=== PATIENT | female | born 1975 | race Caucasian/White ===

== ENCOUNTER 2023-01-14 19:44 | Emergency (ER) | payer BC, SELFPAY ==
[2023-01-14 19:48] VITALS: BP 133/79; PULSE 79; RESP 18; TEMP 36.6; O2SAT 96; BMI 29.1
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
== END 2023-01-14 22:12 | disposition home or self-care (01) ==
PROVIDERS: Emergency Provider Internal Medicine
DX: S62.612A Displaced fracture of proximal phalanx of right middle finger, initial encounter for closed fracture (principal); S62.614A Displaced fracture of proximal phalanx of right ring finger, initial encounter for closed fracture; V29.99XA Rider (driver) (passenger) of other motorcycle injured in unspecified traffic accident, initial encounter; Z87.891 Personal history of nicotine dependence
CPT/HCPCS: 29125; 73130; 99284

== ENCOUNTER 2024-10-12 22:05 | Outpatient (REF) | payer BC, SELFPAY ==
--- OUTSIDE RECORDS SUMMARY | 2024-09-28 07:55 | XMS_ITS | Encounter Summary ---
Author Organization [facility] tem Address [id number] [address] [place] [address] Care Team Providers Care Registered Clinical Dietitian Name Role Phone Lisa Tobias MD Primary Care Provider [phone] Reason for Visit * Auth/Cert Specialty Diagnoses / Procedures Referred By Contac t Referred To Contact Diagnoses Screen for colon cancer screening Procedures MD COLON CA SCRN NOT HI RSK IND MD COLONOSCOPY FLX DX W/COLLJ SPEC WHEN PFRMD COLONOSCOPY DIAGNOSTIC / SCREENING COLONOSCOPY DIAGNOSTIC / SCREENING Brandon Jeffrey, [address] [place] [address] Phone: tel: fax: Referral ID Status Reason Start Date Expiration Date Visits Re quested Visits Authorized [id number] 1 1 Encounter Details Date Type Department Care Team (Late st Contact Info) Description 09/28/2024 7:55 AM EDT Anesthesia Event [facility] - Surgery [address] [place] [address] Sandip Tomas MD [address] [place] [id number] Anesthesia Record Procedure Summary Procedure Name Responsible Anesthesiologist Anesthesia Start Time Anesthesia Stop Time COLONOSCOPY DIAGNOSTIC / SCREENING Sandip Tomas MD 09/28/24 0755 09/28/24 0811 Events Date Time Event Comment 09/28/2024 0718 0755 An Start 0755 An Start Data 0759 An Induction The patient was reevaluated immediately before moderate or deep sedation use and before anesthesia induction. 0759 Patient Ready for Surgeon 0759 Position 0811 an stop data 0811 Transport/Transfer From the OR 0811 An Stop 08 Handoff to RN Transported to :Phase II, Spontaneous Ventilation, O2 per Nasal Cannula, 0 LPM Pt. Tolerated procedure well, vital signs stable and document on nursing record Care transferred to receiving RN Meds Name Total propofol (DIPRIVAN) injection 300 mg lidocaine (XYLOCAINE) injection 2% 100 m g lactated ringers infusion 0 mL * Agents No agents on file. * Blood No blood administrations on file. Lines, Drains, and Airways Type Details Placement Removal Peripheral IV Placement Date: 09/01 ; Placement Time: 625; Catheter Size: 22 G; Orientation: Posterior, Right; Location: Hand; Site Prep: Chlorhexadine and isopropyl alcohol; Inserted by: LISA RN; Insertion Attempts: 1; Patient Tolerance: Tolerated well; Removal Date: 09/28/24; Removal Time: 82409/28/24625 by Courtney Connell RN 09/28/24824 by Courtney Connell RN documented in this encounter Social History Tobacco Use Types Packs/Day Years Used Date Smoking Tobacco: Former Cigarettes 1 12.4 0 05/02/1999 - 09/11/2011 Smokeless Tobacco: Never Alcohol Use Standard Drinks/Week Comments Not Currently 2 (1 standard drink = 0.6 oz pur e alcohol) Childcare Answer Date Recorded Childcare Unknown 09/10/2018 Employment Answer Date Recorded Employment Unknown 09/10/2018 Comments No Sex and Gender Information Value Date Recorded Sex Assigned at Not on file Legal Sex Female 11:51 AM EDT Gender Identity Not on file Sexual Orientation Not on file documented as of this encounter OR Notes * Anesthesia Postprocedure Evaluation - Sandip Tomas MD - 09/30/2024 2:11 PM EDT ANESTHESIA POST-EVALUATION [facility] [place] Procedure Summary Date: 09/28/24 Room / Location: [facility] OR [address] [place] [address] SURGERY Anesthesia Start: 754 Anesthesia Stop: 810 Procedure: COLONOSCOPY DIAGNOSTIC / SCREENING Diagnosis: Screen for colon cancer (screening) Surgeons: Brandon Jeffrey DO Responsible Provider: Sandip Tomas MD Anesthesia Type: MAC ASA Status: 3 Vitals: 09/28/24 0831 BP: 105/69 Pulse: 68 Resp: 18 Temp: SpO2: 98% Patient Evaluated: PACU Patient Participation: Complete - patient participated Patient Level of Consciousness: Awake Pain Score: 1 Pain Management: Adequate Airway Patency: Patent Anesthetic Complications: No Cardiovascular Status: Hemodynamically Stable Respiratory Status: Stable/Baseline, Nonlabored Ventilation and Room Air Post-op Hydration: Euvolemic Final Anesthesia Type: MAC Does patient meet criteria to D/C from PACU?: Yes Is patient sedated pharmacologically at PACU D/C?: No No notable events documented. * Anesthesia Preprocedure Evaluation - Sandip Tomas MD - 09/28/2024 7:17 AM EDT Images from the original note were not included. [facility]): COLONOSCOPY DIAGNOSTIC / SCREENING ANESTHESIA PHYSICAL EXAM Patient summary reviewed and nursing notes reviewed. Airway Mallampati: II TM distance: >3 FB Neck ROM: full Patient is not intubated Patient does not have tracheostomy Dental : exam normal Pulmonary : exam normal Cardiovascular : exam normal Abdominal : exam normal Other Findings ANESTHESIA PLAN ASA 3 Anesthesia Type: MAC Induction: Intravenous Anesthetic risks, plan and alternatives discussed with Patient and Spouse. Use of blood products discussed with Patient and Spouse who consented to blood products. Plan discussed with Attending and BUTTON PUNCHER. Airway Management: Nasal Cannula and Awake/Sedated Post op Pain Management: IV Analgesics Transfer to Phase II PONV: Intermediate Risk Total Score: 2 Female patient Non-smoker Criteria that do not apply: History of PONV and/or Motion Sickness Intended opioid administration RCRI: Low Risk: Score of 0 = 3.9% (2.8-5.4%) Risk of major cardiac event Score of 1 = 6.0% (4.9-7.4%) Risk of major cardiac event Total Score: 0 Criteria that do not apply: Cerebrovascular Disease Ischemic Heart Disease Congestive Heart Failure Elevated Risk Surgery Pre-operative Treatment with Insulin Pre-operative Creatinine >2 mg/dL / 176.8 mol/L There is no problem list on file for this patient. documented in this encounter Plan of Treatment Not on file documented as of this encounter Visit Diagnoses Not on filedocumented in this encounter Administered Medications Inactive Administered Medications - up to 3 most recent administrations Medication Order MAR Action Action Date Dose Rate Site lactated ringers infusion 50 mL/hr, intravenous, Continuous, Starting on Sat09/28/24 at 0630, Pre-op, If fluid restriction is not indicated, infuse at a rate up to 5 mL/kg/hr not to exceed the total replacement volume (2 ml/kg/hr) from the time NPO status was initiated. Continued by Anesthesia 09/28/2024 7:55 AM EDT 50 mL/hr New Bag 09/28/2024 6:30 AM EDT 50 mL/hr 50 mL/hr lidocaine (XYLOCAINE) 20 mg/mL (2 %) injection intravenous, As needed, Starting on Sat09/28/24 at 0803, Anesthesia Intra-op Given 09/28/2024 8:03 AM EDT 100 mg propofoL (DIPRIVAN) infusion intravenous, As needed, Starting on Sat09/28/24 at 0803, Anesthesia Intra-op Given 09/28/2024 8:07 AM EDT 100 mg Given 09/28/2024 8:03 AM EDT 100 mg Given 09/28/2024 8:01 AM EDT 100 mg documented in this encounter Care Teams Registered Clinical Dietitian Relationship Specialty Start Date End Date Lisa Tobias MD [address] [place] [address] PCP - General Family Medicine 01/28/23 documented as of this encounter
--- OUTSIDE RECORDS SUMMARY | 2024-09-28 08:00 | XMS_ITS | Encounter Summary ---
Author Organization [facility] tem Address [id number] [address] [place] [address] Care Team Providers Care Wood Pile Driver Operator Name Role Phone Lisa Tobias MD Primary Care Provider [phone] Reason for Visit * Auth/Cert Specialty Diagnoses / Procedures Referred By Contac t Referred To Contact Diagnoses Screen for colon cancer screening Procedures SD COLON CA SCRN NOT HI RSK IND SD COLONOSCOPY FLX DX W/COLLJ SPEC WHEN PFRMD COLONOSCOPY DIAGNOSTIC / SCREENING COLONOSCOPY DIAGNOSTIC / SCREENING Brandon Jeffrey DO [address] [place] [address] Phone: tel: fax: Referral ID Status Reason Start Date Expiration Date Visits Re quested Visits Authorized [id number] 1 1 Encounter Details Date Type Department Care Team (Late st Contact Info) Description 09/28/2024 8:00 AM EDT - 09/28/2024 8:[address] [facility] - Surgery [address] [place] [address] Brandon Jeffrey DO [address] [place] [address] COLONOSCOPY DIAGNOSTIC / SCREENING [G0121 +1 more] Surgery Details Date/Time Status Location OR Service Patient Class Case Cl ass Case Type Trauma Case? 09/28/2024 8:00 AM Posted [facility] [address] [place] [address] Outpatient Surgery Elective Panel 1 Procedure LRB Anes Op Region Wound Class Comments COLONOSCOPY DIAGNOSTIC / SCREENING N/A Monitored Anesthesia Care Surgeon Surgeon Role Service Panel Brandon Jeffrey, Primary General 1 documented in this encounter Social History Tobacco [...] on file documented as of this encounter Last Filed Vital Signs Vital Sign Reading Time Taken Comments Blood Pressure 106/69 09/28/2024 8:13 AM EDT Pulse 64 09/28/2024 8:13 AM EDT Temperature 36.8 C (98.3 F) 09/28/2024 6:30 AM EDT Respiratory Rate 24 09/28/2024 8:13 AM EDT Oxygen Saturation 97% 09/28/2024 8:13 AM EDT Inhaled Oxygen Concentration - - Weight 86.2 kg (190 lb) 09/28/2024 6:30 AM EDT Height 165.1 cm (5' 5 ) 09/28/2024 6:30 AM EDT Body Mass Index 31.62 09/28/2024 6:30 AM EDT documented in this encounter Discharge Instructions * Discharge Instructions* Courtney Connell RN - 09/28/2024 8:14 AM EDT You may feel dizzy, sleepy, and lightheaded due to medications you received. For the next 24 hours: Activity tolerated within Physical Limits Rest at home with moderate activity as tolerated Do not drink alcohol Do not drive Do not operate complex/hazardous machinery today Do not make important decisions or sign important papers Notify physician of: Temperature over 100.4 degrees farenheit Redness, Warmth, Hardness around IV site Allergic Reaction (rash, hives, itching, trouble breathing or swallowing) Questions, Problems, Concerns Preop phone number [phone] ext [phone] POST LOWER ENDOSCOPY INSTRUCTIONS Normal expectations after this procedure include: Abnormal discomfort due to the air put in during the examination, and this will not last long. You may notice a small amount of blood in your first bowel movements if a biopsy or polyp was taken. It is rare that you will experience any serious side effects from this procedure. Over the next 24 hours observe for any of the following and notify your physician if they develop. Increase in rectal bleeding or black tarry stools Temperature over 100.4 ?? F. Abdominal discomfort that continues or increases Persistent vomiting If Soreness develops at your intravenous site, Apply warm, moist compresses for 20 minutes, 4 timesa day. If there is no improvement after 24 hours, please call your physician. GENERAL ACTIVITY You have been given sedative medications. Normal responses to these medications include drowsiness,altered perception, or forgetfulness. For the Next 24 hours: Do not drive, work, or operate machinery Do not consume alcohol, tranquilizers, or sleeping medications unless advised by your physician. Do not make important personal or business decisions DIET Advance diet as tolerated Any questions regarding your care, please contact [facility] [phone] documented in this encounter Medications at Time of Discharge ibuprofen (ADVIL,MOTRIN) 200 mg tablet Take 3 tablets (600 mg total) by mouth every 6 (six) hours as needed. documented as of this encounter H&P Notes * Brandon Jeffrey DO - 09/28/2024 6:20 AM EDT HISTORY AND PHYSICAL INTERVAL NOTE: Camilla Costa 1975 [id number] H&P reviewed. The patient was examined and there are no changes to the H&P. Brandon Jeffrey DO Source Note - Suri Bradley APRN-DIRECT SERVICE WORKER - 09/21/2024 12:00 PM EDT Chief Complaint: Screening colonoscopy History of Present Illness Camilla Costa is a 48 y.o. female who presents to the office for colon cancer screening. This will be her first colonoscopy. She reports lower abdominal pain for years. The pain is unrelated to bowel movements and is worst when she is menstruating. She is following with OBGYN. She denies any constipation, diarrhea or rectal bleeding. There is no family history of colon cancer. Review of Systems Constitutional: Negative for fever and unexpected weight change. HENT: Negative for trouble swallowing. Respiratory: Negative for shortness of breath. Cardiovascular: Negative for chest pain. Gastrointestinal: Negative for vomiting, diarrhea, constipation and blood in stool. Genitourinary: Negative for dysuria and difficulty urinating. Musculoskeletal: Negative for gait problem. Skin: Negative for rash and wound. Neurological: Negative for dizziness, weakness and light-headedness. Hematological: Does not bruise/bleed easily. Psychiatric/Behavioral: Negative for confusion. Past Medical History: Diagnosis Date Allergic Seasonal Anemia 09/10 Diagnosed when in 2011 Past Surgical History: Procedure Laterality Date FINGER SURGERY KNEE SURGERY No Known Allergies Current Outpatient Medications: ibuprofen (ADVIL,MOTRIN) 200 mg tablet, Take 3 tablets (600 mg total) by mouth every 6 (six) hours as needed., Disp: , Rfl: sod sulf-pot chloride-mag sulf 1.479-0.188- 0.225 gram tablet, Please see instructional sheet givenby physicians office., Disp: 24 tablet, Rfl: 0 Social History Socioeconomic History Marital status: Spouse name: Not on file Number of children: Not on file Years of education: Not on file Highest education level: Not on file Occupational History Not on file Tobacco Use Smoking status: Former Current packs/day: 0.00 Average packs/day: 1 pack/day for 12.4 years (12.4 ttl pk-yrs) Types: Cigarettes Start date: 05/02/1999 Quit date: 09/11/2011 Years since quittin.0 Smokeless tobacco: Never Vaping Use Vaping status: Never Used Substance and Sexual Activity Alcohol use: Not Currently Alcohol/week: 2.0 standard drinks of alcohol Types: 2 Cans of beer per week Drug use: Never Sexual activity: Yes Partners: Male control/protection: Post-menopausal Other Topics Concern Not on file Social History Narrative Not on file Social Drivers of Health Financial Resource Strain: Low Risk (06/04/2024) Received from [facility] Overall Financial Resource Strain (CARDIA) Difficulty of Paying Living Expenses: Not hard at all Food Insecurity: No Food Insecurity (06/04/2024) Received from [facility] Hunger Vital Sign Worried About Running Out of Food in the Last Year: Never true Ran Out of Food in the Last Year: Never true Transportation Needs: No Transportation Needs (06/04/2024) Received from [facility] PRAPARE - Transportation Lack of Transportation (Medical): No Lack of Transportation (Non-Medical): No Physical Activity: Sufficiently Active (06/04/2024) Received from [facility] Exercise Vital Sign Days of Exercise per Week: 4 days Minutes of Exercise per Session: 50 min Stress: Stress Concern Present (06/04/2024) Received from [facility] [place] of Occupational Health - Occupational Stress Questionnaire Feeling of Stress : To some extent Social Connections: Socially Isolated (06/04/2024) Received from [facility] Social Connection and Isolation Panel [NHANES] Frequency of Communication with Friends and Family: Twice a week Frequency of Social Gatherings with Friends and Family: Once a week Attends Confucianist Services: Never Active Member of Clubs or Organizations: No Attends Club or Organization Meetings: Patient declined Marital Status: Interpersonal Safety: Not on file Housing Instability: Low Risk (06/04/2024) Received from [facility] Housing Stability Vital Sign Unable to Pay for Housing in the Last Year: No Number of Times Moved in the Last Year: 0 Homeless in the Last Year: No Family History Problem Relation Age of Onset Diabetes Mother Objective Physical Exam Constitutional: General: She is not in acute distress. Appearance: Normal appearance. She is not ill-appearing. HENT: Head: Normocephalic and atraumatic. Mouth/Throat: Mouth: Mucous membranes are moist. Eyes: Pupils: Pupils are equal, round, and reactive to light. Cardiovascular: Rate and Rhythm: Normal rate. Pulmonary: Effort: Pulmonary effort is normal. No respiratory distress. Abdominal: General: There is no distension. Palpations: Abdomen is soft. Tenderness: There is no abdominal tenderness. Musculoskeletal: General: Normal range of motion. Skin: General: Skin is warm and dry. Neurological: Mental Status: She is alert and oriented to person, place, and time. Mental status is at baseline. Vital Signs: Blood pressure 152/75, height 165.1 cm (5' 5 ), weight 90.4 kg (199 lb 3.2 oz). Respiratory Source: No data recorded Admission Weight: Weight: 90.4 kg (199 lb 3.2 oz) Labs No results found for: WBC , HGB , HCT , MCV , PLT No results found for: GLU , CALCIUM , NA , K , CO2 , CL , BUN , CREATININE No results found for: AMYLASE No results found for: LIPASE No results found for: ALT , AST , GGT , ALKPHOS , LABBILI No results found for: INR , PROTIME Assessment Camilla Costa is a 48 y.o.female who presents for screening colonoscopy. Plan Colonoscopy with possible biopsy and/or polypectomy. Risks, benefits, and alternatives discussed with patient. Patient verbalizes understanding and wishes to proceed. Evaluation included: Preparing to see the patient (e.g., review of tests) Obtaining and/or reviewing separately obtained history Performing a medically appropriate examination and/or evaluation Counseling and educating the patient/family/caregiver Referring and communicating with other health critical care transport nurse Encounter for screening colonoscopy [Z12.11] ELYSSA KING [facility] General Surgery [place] This note was created with the assistance of a speech recognition program. While intending to generate a timely document that accurately reflects the content of the visit, no guarantee can be provided that every grammatical or spelling mistake has been or will be identified or corrected. Thank you for your understanding. ELYSSA King 09/21/24 1237 ELYSSA King 09/28/24 0621 documented in this encounter Plan of Treatment Not on file documented as of this encounter Procedures Procedure Name Priority Date/Time Associated Diagnosis Comments SD COLONOSCOPY FLX DX W/COLLJ SPEC WHEN PFRMD 09/28/2024 7:58 AM EDT Screen for colon cancer SD COLON CA SCRN NOT HI RSK IND 09/28/2024 7:58 AM EDT Screen for colon cancer COLONOSCOPY 09/28/2024 7:51 AM EDT PROVATION COLONOSCOPY Routine 09/28/2024 6:18 AM EDT documented in this encounter Results * Colonoscopy (09/28/2024 7:51 AM EDT) 09/28/2024 7:51 AM EDT [facility] CARDIOVASCULAR - 09/28/2024 8:[address] [facility] Patient Name: Camilla Costa Procedure Date No Time: 09/28/2024 CSN : [id number] Date of : 1975 Admit Type: Outpatient Age: 48 Room: [place] [address] Gender: Female Note Status: Finalized Attending MD: Brandon Jeffrey DO, Procedure: Colonoscopy Indications: Screening for colorectal malignant neoplasm Providers: Brandon Jeffrey DO Referring MD: Brandon Jeffrey DO Medicines: Propofol per Anesthesia Complications: No immediate complications. Procedure: After I obtained informed consent, the scope was passed under direct vision. Throughout the procedure, the patient's blood pressure, pulse, and oxygen saturations were monitored continuously. [facility] [id number] #[id number] ADULT COLONOSCOPE was introduced through the anus and advanced to the cecum, identified by appendiceal orifice and ileocecal valve. The colonoscopy was performed without difficulty. The patient tolerated the procedure well. The quality of the bowel preparation was excellent. Findings: The perianal and digital rectal examinations were normal. The colon (entire examined portion) appeared normal. The exam was otherwise without abnormality on direct and retroflexion views. Estimated Blood Loss: Estimated blood loss: none. Impression: - The entire examined colon is normal. - The examination was otherwise normal on direct and retroflexion views. - No specimens collected. Recommendation: - Written discharge instructions were provided to the patient. - Repeat colonoscopy in 10 years for screening purposes. - Return to my office PRN. Procedure Code(s): --- Professional --- G0121, Colorectal cancer screening; colonoscopy on individual not meeting criteria for high risk Diagnosis Code(s): --- Professional --- Z12.11, Encounter for screening for malignant neoplasm of colon CPT copyright 2022 [employer] [place] [employer]. All rights reserved. The codes documented in this report are preliminary and upon fur pointer review may be revised to meet current compliance requirements. DO Brandon Menjivar DO 09/28/2024 8:13:06 AM Number of Addenda: 0 Note Initiated On: 09/28/2024 7:51 AM Procedure Note Brandon Jeffrey DO - 09/28/2024 [facility] Patient Name: Camilla Costa Procedure Date No Time: 09/28/2024 CSN : [id number] Date of : 1975 Admit Type: Outpatient Age: 48 Room: [place] [address] Gender: Female Note Status: Finalized Attending MD: Brandon Jeffrey DO, Procedure: Colonoscopy Indications: Screening for colorectal malignant neoplasm Providers: Branodn Jeffrey DO Referring MD: Brandon Jeffrey DO Medicines: Propofol per Anesthesia Complications: No immediate complications. Procedure: After I obtained informed consent, the scope was passed under direct vision. Throughout theprocedure, the patient's blood pressure, pulse, and oxygen saturations were monitored continuously. [facility] [id number] #[id number] ADULT COLONOSCOPE was introduced through the anus and advanced to the cecum,identified by appendiceal orifice and ileocecal valve. The colonoscopy was performed without difficulty. The patient tolerated the procedure well. The qualityof the bowel preparation was excellent. Findings: The perianal and digital rectal examinations were normal. The colon (entire examined portion) appeared normal. The exam was otherwise without abnormality on direct and retroflexion views. Estimated Blood Loss: Estimated blood loss: none. Impression: - The entire examined colon is normal. - The examination was otherwise normal on directand retroflexion views. - No specimens collected. Recommendation: - Written discharge instructions were provided tothe patient. - Repeat colonoscopy in 10 years for screening purposes. - Return to my office PRN. Procedure Code(s): --- Professional --- G0121, Colorectal cancer screening; colonoscopy on individual not meeting criteria for high risk Diagnosis Code(s): --- Professional --- Z12.11, Encounter for screening for malignant neoplasm of colon CPT copyright 2022 [employer] [place] [employer]. All rights reserved. The codes documented in this report are preliminary and upon fur pointer reviewmay be revised to meet current compliance requirements. DO Brandon Menjivar DO 09/28/2024 8:13:06 AM Number of Addenda: 0 Note Initiated On: 09/28/2024 7:51 AM us Brandon E Grillis DO GI PROCEDURE ORDERABLES Fin al Result PM CARDIOVASCULAR * Colonoscopy Report (09/28/2024 6:18 AM EDT) Narrative SYSTEMGENERATED, DOCUMENTATION - 09/28/2024 6:18 AM EDT This order has been auto-finalized for image and report archival in PACs. *For full report details, please reach out to your physician. This image is visible to you in MyChart.* us Brandon Farahradha DO IMG OR IMG ORDERABLES Final Result documented in this encounter Visit Diagnoses Diagnosis Screening for cancer- Primary Screening for unspecified malignant neoplasm Screen for colon cancer Special screening for malignant neoplasms, colon documented in this encounter Administered Medications Inactive Administered [...] 6:30 AM EDT 50 mL/hr 50 mL/hr documented in this encounter Active and Recently Administered Medications Times are shown in EDT. Continuous Medication Order 09/26/2024 09/27/2024 09/28/2024 lactated ringers infusion (CANCELED) 50 mL/hr, intravenous, Continuous, Starting on Sat09/28/24 at 0630, Pre-op, If fluid restriction is not indicated, infuse at a rate up to 5 mL/kg/hr not to exceed the total replacement volume (2 ml/kg/hr) from the time NPO status was initiated. 0630 (New Bag - Prov ider: Courtney Connell RN)0755 (Continued by Anesthesia - Provider: Misha Verdugo APRN-PIGMENT AND LACQUER MIXER)0833 (Due: Order Ending - Provider: Automatic Transfer Provider - Comment: [Order ends at this time. Document the following action when infusion is complete: Stop Bag]) documented in this encounter Care Teams Wood Pile Driver Operator Relationship Specialty Start Date End Date Lisa Tobias MD [address] [place] [address] PCP - General Family Medicine 01/28/23 documented as of this encounter
--- OUTSIDE RECORDS SUMMARY | 2024-10-12 14:20 | XMS_ITS | Encounter Summary ---
Author Organization [facility] Address [address] [place] [address] Care Team Providers Care Agricultural Equipment Test Engineer Name Role Phone Lisa Tobias MD Primary Care Provider [phone] Lola Craig ASSISTANT CURATOR Unavailable [phone] Reason for Visit * Reason Comments Pre-op Visit Gynecologic Exam Encounter Details Date Type Department Care Team (Late st Contact Info) Description 10/12/2024 2:20 PM EDT Office Visit [facility] [address] [place] [address] Jonathon Lang DO [address] [place] [place], [id number] Pre-op examination; Pelvic pain; Menorrhagia with irregular cycle; Abnormal uterine bleeding (AUB); Endometrial polyp; Well woman exam with routine gynecological exam; Breast cancer screening by mammogram Social History Tobacco Use Types Packs/Day Years Used Date Smoking Tobacco: Former Cigarettes Smokeless Tobacco: Never Alcohol Use Standard Drinks/Week Comments Yes 0 (1 standard drink = 0.6 oz pur e alcohol) B1300 Health Literacy Answer Date Recor ded How often do you need to hav e someone help you when you read instructions, pamphlets, or other written material from your doctor or pharmacy? Never 06/04/2024 Social Connection and Isolation Panel [NHANES] A nswer Date Recorded In a typical week, how many times do you talk on the phone with family, friends, or neighbors? Twice a week 06/04/2024 How often do you get togethe r with friends or relatives? Once a week 06/04/2024 How often do you attend sikhism or restorationist serv ices? Never 06/04/2024 Do you belong to any clubs o r organizations such as sikhism groups, unions, fraternal or athletic groups, or school groups? No 06/04/2024 How often do you attend meet ings of the clubs or organizations you belong to? Patient declined 06/04/2024 Are you , , di vorced, , never , or living with a partner? 06/04/2024 AUDIT-C Answer Date Recorded Q1: How often do you have a drink containing alc ohol? Monthly or less 06/04/2024 Q2: How many drinks containi ng alcohol do you have on a typical day when you are drinking? 1 or 2 06/04/2024 Q3: How often do you have si x or more drinks on one occasion? Less than monthly 06/04/2024 Overall Financial Resource Strain (CARDIA) Answe r Date Recorded How hard is it for you to pa y for the very basics like food, housing, medical care, and heating? Not hard at all 06/04/2024 [facility] [place] of Occupat ional Health - Occupational Stress Questionnaire Answer Date Recorded Do you feel stress - tense, restless, nervous, or anxious, or unable to sleep at night because your mind is troubled all the time - these days? To some extent 06/04/2024 Exercise Vital Sign Answer Date Recorde d On average, how many days pe r week do you engage in moderate to strenuous exercise (like a brisk walk)? 4 days 06/04/2024 On average, how many minutes do you engage in exercise at this level? 50 min 06/04/2024 Hunger Vital Sign Answer Date Recorded Within the past 12 months, y ou worried that your food would run out before you got the money to buy more. Never true 06/05/19 25 Within the past 12 months, t he food you bought just didn't last and you didn't have money to get more. Never true 06/04/2024 PRAPARE - Transportation Answer Date Re corded In the past 12 months, has l ack of transportation kept you from medical appointments or from getting medications? No 08/2024 In the past 12 months, has l ack of transportation kept you from meetings, work, or from getting things needed for daily living? No 06/04/2024 Housing Stability Vital Sign Answer Sebastian e Recorded In the last 12 months, was t here a time when you were not able to pay the mortgage or rent on time? No 06/04/2024 In the past 12 months, how m any times have you moved where you were living? 0 06/04/2024 At any time in the past 12 m [facility], were you homeless or living in a nursing home (including now)? No 06/04/2024 Comments No Sex and Gender Information Value Date Recorded Sex Assigned at Not on file Legal Sex Female 7:01 PM EDT Gender Identity Not on file Sexual Orientation Not on file documented as of this encounter Last Filed Vital Signs Vital Sign Reading Time Taken Comments Blood Pressure 130/82 10/12/2024 2:39 PM EDT Pulse - - Temperature - - Respiratory Rate - - Oxygen Saturation - - Inhaled Oxygen Concentration - - Weight 88.1 kg (194 lb 1.9 oz) 10/12/2024 2:39 P M EDT Height - - Body Mass Index 32.3 10/10/2022 1:40 PM EDT documented in this encounter Plan of Treatment Upcoming Encounters Date Type Department Care Team (Late st Contact Info) Description 11/16/2024 9:30 AM EDT Office Visit [facility] [address] [place] [address] Vianney Reyes PA [address] [place], [place] [id number] 10/18/2025 10:00 AM EDT Procedure Visit [facility] [address] [facility] [place] [address] Jonathon Lang DO [address] [place] [address] Scheduled Orders Name Type Priority Associated Diagnoses Orde r Schedule Bilateral screening mammogram Imaging Routine Breast cancer screening by mammogram Expected: 10/12/2024 (Approximate), Expires: 12/13/2025 THIN PREP TIS PAP AND HR HPV DNA Pathology and Cytology Routine Well woman exam with routine gynecological exam Ordered: 10/12/2024 documented as of this encounter Visit Diagnoses Diagnosis Pre-op examination Pelvic pain Menorrhagia with irregular cycle Abnormal uterine bleeding (AUB) Endometrial polyp Polyp of corpus uteri Well woman exam with routine gynecological exam Routine gynecological examination Breast cancer screening by mammogram documented in this encounter Care Teams Agricultural Equipment Test Engineer Relationship Specialty Start Date End Date Lisa Tobias MD [address] [place] [address] PCP - General Family Medicine 09/18/22 Lola Craig NP [address] [place] [address] PCP - Jessi Sampson 07/30/24 documented as of this encounter
--- OUTSIDE RECORDS SUMMARY | 2024-10-12 22:11 | XMS_ITS | Encounter Summary ---
Author Organization [facility] Address [address] [place] [address] Care Team Providers Care Staking Press Operator Name Role Phone Lisa Tobias MD Primary Care Provider [phone] Lola Craig TANK BUILDER AND ERECTOR Unavailable [phone] Encounter Details Date Type Department Care Team (Latest Contact Info) Description 10/11/2024 Travel Social History Tobacco Use Types Packs/Day Years [...] week 06/04/2024 How often do you attend latter-day or taoism serv ices? Never 06/04/2024 Do you belong to any clubs o r organizations such as latter-day groups, unions, fraternal or athletic groups, or [...] and heating? Not hard at all 06/04/2024 [facility] Occup[facility] ional Health - Occupational Stress [...] time in the past 12 m [facility], were you homeless or living in a fdc (including now)? No 06/04/2024 Comments No Sex and Gender Information Value Date Recorded Sex Assigned at Not on file Legal Sex Female 7:01 PM EDT Gender Identity Not on file Sexual Orientation Not on file documented as of this encounter Plan of Treatment Upcoming Encounters Date Type Department Care Team (Late st Contact Info) Description 11/16/2024 9:30 AM EDT Office Visit [facility] OB [address] [place] [address] Vianney Reyes PA [address] [place], [place] [address] 10/18/2025 10:00 AM EDT Procedure Visit [facility] OB [address] [place] [address] Jonathon Lang DO [address] [facility] [address] [place], [facility] documented as of this encounter Visit Diagnoses Not on filedocumented in this encounter Care Teams Staking Press Operator Relationship Specialty Start Date End Date Lisa Tobias MD [address] [place], [place] [id number] PCP - General Family Medicine 09/18/22 Lola Craig NP [address] [place], [place] [id number] PCP - [place] [employer] 07/30/24 documented as of this encounter
--- OUTSIDE RECORDS SUMMARY | 2024-10-12 22:11 | XMS_ITS | Clinical Summary ---
Author Organization [facility] Address [address] [place] [address] Care Team Providers Care Medical Device Sales Representative Name Role Phone Lisa Tobias MD Primary Care Provider [phone] Lola Craig MEDICAL CODING INSTRUCTOR Unavailable [phone] Allergies No known active allergies Medications ibuprofen 200 MG tablet Take 600 mg by mouth every 6 (six) hours if needed. Active Active Problems No known active problems Encounters Date Type Department Care Team Description 10/12/2024 2:20 PM EDT Office Visit [facility] [place] [address] [place] [address] Jonathon Lang DO Pre-op examination; Pelvic pain; Menorrhagia with irregular cycle; Abnormal uterine bleeding (AUB); Endometrial polyp; Well woman exam with routine gynecological exam; Breast cancer screening by mammogram 10/11/2024 Travel 09/28/2024 Abstract [facility] [place] [address] [place] [address] Jonathon Lang DO 08/31/2024 1:10 PM EDT Consult [facility] [place] [address] [place] [address] Jonathon Lang DO Pelvic pain in female (Primary Dx); Menorrhagia with regular cycle 08/31/2024 Bamboo flowsheet [facility] [place] [address] [place] [address] Jonathon Lang, 08/26/2024 Travel 07/15/2024 Results Follow-Up [facility] [address] [facility] [place] [id number] Isis Blakely CNM 07/15/2024 Orders Only [facility] [address] [facility] [place] [address] Isis Blakely CNM Pelvic pain in female (Primary Dx) from Last 3 Months Family History Medical History Relation Name Comments Hypertension Father Hypertension Mother Relation Name Status Comments Father Alive Mother Alive Social History Tobacco Use Types Packs/Day Years Used Date Smoking Tobacco: Former Cigarettes Smokeless Tobacco: Never Tobacco Cessation:Counseling Given: Not Answered Alcohol Use Standard Drinks/Week Comments Yes 0 [...] week 06/04/2024 How often do you attend gnosticism or mu-ism serv ices? Never 06/04/2024 Do you belong to any clubs o r organizations such as gnosticism groups, unions, fraternal or athletic groups, or [...] and heating? Not hard at all 06/04/2024 [facility] Occupat ional Health - Occupational Stress [...] any time in the past 12 m [facility], were you homeless or living in a detention (including now)? No 06/04/2024 Comments No Sex and Gender Information Value Date Recorded Sex Assigned at Not on file Legal Sex Female 7:01 PM EDT Gender Identity Not on file Sexual Orientation Not on file Last Filed Vital Signs Vital Sign Reading Time Taken Comments Blood Pressure 130/82 10/12/2024 2:39 PM EDT Pulse 80 06/08/2024 3:24 PM EDT Temperature - - Respiratory Rate - - Oxygen Saturation 99% 06/08/2024 3:24 PM EDT Inhaled Oxygen Concentration - - Weight 88.1 kg (194 lb 1.9 oz) 10/12/2024 2:39 P M EDT Height 165.1 cm (5' 5 ) 10/10/2022 1:40 PM EDT Body Mass Index 32.3 10/10/2022 1:40 PM EDT Plan of Treatment Upcoming Encounters Date Type Department Care Team (Late st Contact Info) Description 11/16/2024 9:30 AM EDT Office Visit [facility] OB [address] [place] [address] Vianney Reyes PA [address] [facility] [address] [place], [place] [id number] 10/18/2025 10:00 AM EDT Procedure Visit [facility] [address] [facility] [address] Jonathon Lang DO [address] [facility] [address] [place] [place], [place] [id number] Health Maintenance Due Date Last Done Comments CT Colonography 1977 FIT-DNA 1977 FIT 1977 FOBT 1975 Sigmoidoscopy 1977 Pap Smear 1998 Mammogram 2017 Influenza Vaccine (#1) 2024 Cervical Cancer Screening 09/26/2027 HPV/Cotest 09/26/2027 09/25/2022, 02/02/2021 Colonoscopy 09/28/2034 09/28/2024, 09/28/2024, 09/01 Colorectal Cancer Screening 09/28/2034 Procedures Procedure Name Priority Date/Time Associated Diagnosis Comments THINPREP PAP AND HPV MRNA E6/E7 W/RFL HPV 16,18/45 Routine 09/25/2022 3:59 PM EDT Vaginal burning from Last 3 Months or Most Recently Relevant to Health Maintenance Results * THINPREP PAP AND HPV MRNA E6/E7 W/RFL HPV 16,18/45 (09/25/2022 3:59 PM EDT) CLINICAL INFORMATION [facility] Comment:Routine exam LMP [facility] Comment:NONE GIVEN PREV. PAP [facility] Comment:NONE GIVEN PREV. BX [facility] Comment:NONE GIVEN SOURCE [facility] Comment:None given STATEMENT OF ADEQUACY [facility] Comment: Satisfactory for evaluation. Endocervical/transformation zone component present. INTERPRETATION/RESU LT [facility] Comment:Negative for intraep ithelial lesion or malignancy. GARAGE DOOR SERVICE TECHNICIAN [facility] Comment: DAA, CT(ASCP) CT Screening Location: [facility] [place] [address] REVIEW GARAGE DOOR SERVICE TECHNICIAN [facility] Comment: ARTURO SCT(ASCP) CT Screening Location: [place] [address]. (ALWAYS MESSAGE) [facility] Comment: EXPLANATORY NOTE: The Pap is a screening test for cervical cancer. It is not a diagnostic test and is subject to false negative and false positive results. It is most reliable when a satisfactory sample, regularly obtained, is submitted with relevant clinical findings and history, and when the Pap result is evaluated along with historic and current clinical information. HPV MRNA E6/E7 Not Detected Not Detected [facility] Comment: Methodology: Ground Water Contractor-Mediated Amplification This assay detects E6/E7 viral messenger RNA (mRNA) from 14 high-risk HPV types (16,18,31,33,35,39,45,51,52,56,58,59,66,68). Cervical sources are required for HPV testing. If a vaginal source from a patient who has had a total hysterectomy with removal of cervix was submitted, please contact the testing laboratory for alternative testing options. For additional information, please refer to http://education.[employer]/faq/VNR901l6 (This link if provided for information/ educational purposes only.) 09/25/2022 3:5 9 PM EDT 09/26/2022 4:00 AM EDT Narrative Resulting Agency Comment Performing Organization Information Site ID: [id number] Name: [facility] Address: [address] [place] [address], [address] [place] [id number] Director: Michael Pino MD us Isis LENNON LAB BLOOD ORDERABLES Final R esult [facility] from Last 3 Months or Most Recently Relevant to Health Maintenance Insurance BCBS Care Teams Medical Device Sales Representative Relationship Specialty Start Date End Date Lisa Tobias MD [address] [place] [address] PCP - General Family Medicine 09/18/22 Lola Craig NP [address] [place], [place] [id number] PCP - [place] [employer] 07/30/24
--- OUTSIDE RECORDS SUMMARY | 2024-10-12 22:11 | XMS_ITS | Encounter Summary ---
Author Organization [facility] Address [address] [place] [address] Care Team Providers Care President Financial Institution Name Role Phone Lisa Tobias MD Primary Care Provider [phone] Lola Craig PHARMACEUTICAL SALES REPRESENTATIVE Unavailable [phone] Encounter Details Date Type Department Care Team ([facility] Contact Info) Description 09/28/2024 Abstract [facility] OB [address] [place] [address] Jonathon Lang, DO [address] [facility] [address] [place], [facility] Social History Tobacco Use Types Packs/Day Years [...] week 06/04/2024 How often do you attend jehovah's witness or gnosticist serv ices? Never 06/04/2024 Do you belong to any clubs o r organizations such as jehovah's witness groups, unions, fraternal or athletic groups, or [...] and heating? Not hard at all 06/04/2024 [facility] Occupat ional Health - [...] any time in the past 12 m [facility], were you homeless or living in a senior care (including now)? No 06/04/2024 Comments No Sex and Gender Information Value Date Recorded Sex Assigned at Not on file Legal Sex Female 7:01 PM EDT Gender Identity Not on file Sexual Orientation Not on file documented as of this encounter Plan of Treatment Upcoming Encounters Date Type Department Care Team (Late st Contact Info) Description 11/16/2024 9:30 AM EDT Office Visit [facility] OB [address] [facility] [place] [phone] Vianney Reyes PA [address] [facility] [address] [place], [place] [id number] 10/18/2025 10:00 AM EDT Procedure Visit [facility] OB [address] [place] [address] Jonathon Lang DO [address] [facility] [address] [place], [place] [address] documented as of this encounter Visit Diagnoses Not on filedocumented in this encounter Care Teams President Financial Institution Relationship Specialty Start Date End Date Lisa Tobias MD [address] [facility] [address] [place], [place] [id number] PCP - General Family Medicine 09/18/22 Lola Craig NP [address] [facility] [address] [place], [place] [id number] PCP - [place] Commercial 07/30/24 documented as of this encounter
--- OUTSIDE RECORDS SUMMARY | 2024-10-12 22:11 | XMS_ITS | Encounter Summary ---
Author Organization [employer] tem Address [facility] [place] [place]-[id number] [address] [place] [address] Care Team Providers Care Home Care Aide Name Role Phone Lisa Tobias MD Primary Care Provider [phone] Encounter Details Date Type Department Care Team (Latest Contact Info) Description 09/28/2024 Travel Social History Tobacco Use Types Packs/Day [...] as of this encounter Plan of Treatment Not on file documented as of this encounter Visit Diagnoses Not on filedocumented in this encounter Care Teams Home Care Aide Relationship Specialty Start Date End Date Lisa Tobias MD [address] [place] [address] PCP - General Family Medicine 01/28/23 documented as of this encounter
--- OUTSIDE RECORDS SUMMARY | 2024-10-12 22:11 | XMS_ITS | Encounter Summary ---
Author Organization [facility] Address [address] [facility] [place] [address] Care Team Providers Care Conduit Worker Name Role Phone Lisa Tobias MD Primary Care Provider [phone] Lola Craig AUTOMATIC PILOT MECHANIC Unavailable [phone] Encounter Details Date Type Department Care Team (Late Contact Info) Description 01/18/2023 Abstract [facility] [address] [place] [address] Lisa Tobias MD [address] [place], [place] [id number] Social History Tobacco Use Types Packs/Day Years Used Date Smoking Tobacco: Former Cigarettes Smokeless Tobacco: Never Alcohol Use Standard Drinks/Week Comments Yes 0 (1 standard drink = 0.6 oz pur e alcohol) Comments No Sex and Gender Information Value Date Recorded Sex Assigned at Not on file Legal Sex Female 7:01 PM EDT Gender Identity Not on file Sexual Orientation Not on file documented as of this encounter Plan of Treatment Upcoming Encounters Date Type Department Care Team ([facility] Contact Info) Description 11/16/2024 9:30 AM EDT Office Visit [facility] [address] [facility] [place] [phone] Vianney Reyes PA [address] [facility] [address] [place], [place] [phone] 10/18/2025 10:00 AM EDT Procedure Visit [facility] [address] [facility] [place] [address] Jonathon Lang DO [address] [place] [address] [place] [address] documented as of this encounter Visit Diagnoses Not on filedocumented in this encounter Care Teams Conduit Worker Relationship Specialty Start Date End Date Lisa Tobias MD [address] [place], [place] [id number] PCP - General Family Medicine 09/18/22 Lola Craig NP [address] [place], [place] [id number] PCP - Jessi Sampson 07/30/24 documented as of this encounter
--- OUTSIDE RECORDS SUMMARY | 2024-10-12 22:11 | XMS_ITS | Clinical Summary ---
Author Organization [facility] [employer] [facility] tem Address [facility] [id number] [address] [place] [address] Care Team Providers Care Technical Operations Vice President Name Role Phone Lisa Tobias MD Primary Care Provider [phone] Allergies No known active allergies Medications ibuprofen (ADVIL,MOTRIN) 200 mg tablet Take 3 tablets (600 mg total) by mouth every 6 (six) hours as needed. Active sod sulf-pot chloride-mag sulf 1.479-0.188- 0.225 gram tabletIndicatio ns:Encounter for screening colonoscopy Please see instructional sheet given by physicians office. 24 tablet 09/22/19 25 025 Discontin ued(Thera py completed ) Active Problems No known active problems Encounters Date Type Department Care Team Description 09/28/2024 8:00 AM EDT - 09/28/2024 8:30 AM EDT Surgery [facility] - Surgery [address] [place] [address] Brandon Jeffrey, COLONOSCOPY DIAGNOSTIC / SCREENING [G0121 +1 more] 09/28/2024 7:55 AM EDT Anesthesia Event [facility] - Surgery [address] [place] [address] Sandip Tomas MD 09/28/2024 6:02 AM EDT - 09/28/2024 8:54 AM EDT Hospital Encounter [facility] - Surgery [address] [place] [address] Brandon Jeffrey, DO Screening for cancer (Primary Dx) Discharge Disposition: Home 09/28/2024 Travel 09/23/2024 3:00 PM EDT Support Visit [facility] - Pre Admit [address] [place] [address] 09/21/2024 12:00 PM EDT Office Visit [facility] [address] [place] [address] Suri Bradley APRN-PROPOSAL REVIEW ANALYST Encounter for screening colonoscopy (Primary Dx) 09/20/2024 Travel from Last 3 Months Family History Medical History Relation Name Comments Arthritis Father Diabetes Mother Mother Relation Name Status Comments Father Alive Mother Mother Alive Social History Tobacco Use Types [...] Sign Reading Time Taken Comments Blood Pressure 105/69 09/28/2024 8:31 AM EDT Pulse 68 09/28/2024 8:31 AM EDT Temperature 36.8 C (98.3 F) 09/28/2024 6:30 AM EDT Respiratory Rate 18 09/28/2024 8:31 AM EDT Oxygen Saturation 98% 09/28/2024 8:31 AM EDT Inhaled Oxygen Concentration - - Weight 86.2 kg (190 lb) 09/28/2024 6:30 AM EDT Height 165.1 cm (5' 5 ) 09/28/2024 6:30 AM EDT Body Mass Index 31.62 09/28/2024 6:30 AM EDT Plan of Treatment Health Maintenance Due Date Last Done Comments Depression Screening 1989 Adult BMI Follow Up Plan 12/05/1995 Pap Smear 1998 DTaP,Tdap and Td Vaccines (2 - Td or Tdap) 03/09/2022 03/09/2012 Influenza Vaccine 11/30/2024 Adult BMI Screening 09/28/2025 09/28/2024 Tobacco Screening 09/28/2025 09/28/2024 Medical Devices Not on file Procedures Procedure Name Priority Date/Time Associated Diagnosis Comments NM COLONOSCOPY FLX DX W/COLLJ SPEC WHEN PFRMD 09/28/2024 7:58 AM EDT Screen for colon cancer NM COLON CA SCRN NOT HI RSK IND 09/28/2024 7:58 AM EDT Screen for colon cancer COLONOSCOPY 09/28/2024 7:51 AM EDT PROVATION COLONOSCOPY Routine 09/28/2024 6:18 AM EDT from Last 3 Months Results * Colonoscopy (09/28/2024 7:51 AM EDT) 09/28/2024 7:51 AM EDT Narrative CARDIOVASCULAR - 09/28/2024 8:13 AM EDT [facility] Patient Name: Camilla Costa Procedure Date No Time: 09/28/2024 CSN : [id number] Date of : 1975 Admit Type: Outpatient Age: 48 Room: [place] [address] Gender: Female Note Status: Finalized Attending MD: Brandon Jeffrey DO, Procedure: Colonoscopy Indications: Screening for colorectal malignant neoplasm Providers: Brandon Jeffrey DO Referring MD: Brandon Jeffrey DO Medicines: Propofol per Anesthesia Complications: No immediate complications. Procedure: After I obtained informed consent, the scope was passed under direct vision. Throughout the procedure, the patient's blood pressure, pulse, and oxygen saturations were monitored continuously. The uTaP [id number] #[id number] ADULT COLONOSCOPE was introduced through the anus [...] malignant neoplasm of colon CPT copyright 2022 [employer]. All rights reserved. The codes documented in this report are preliminary and upon window display designer review may be revised to meet current compliance requirements. DO Brandon Menjivar DO 09/28/2024 8:13:06 AM Number of Addenda: 0 Note Initiated On: 09/28/2024 7:51 AM Procedure Note Brandon Jeffrey DO - 09/28/[address] [facility] Patient Name: Camilla Costa Procedure Date No Time: 09/28/2024 CSN : [id number] Date of : 1975 Admit Type: Outpatient Age: 48 Room: [place] [address] Gender: Female Note Status: Finalized Attending MD: Brandon Jeffrey DO, Procedure: Colonoscopy Indications: Screening for colorectal malignant neoplasm Providers: Brandon Jeffrey DO Referring MD: Brandon Jeffrey DO Medicines: Propofol per Anesthesia Complications: No immediate complications. Procedure: After I obtained informed consent, the scope was passed under direct vision. Throughout theprocedure, the patient's blood pressure, pulse, and oxygen saturations were monitored continuously. [facility] [id number] #[id number] ADULT COLONOSCOPE was introduced through the anus [...] malignant neoplasm of colon CPT copyright 2022 [employer]. All rights reserved. The codes documented in this report are preliminary and upon window display designer reviewmay be revised to meet current compliance requirements. DO Brandon Menjivra DO 09/28/2024 8:13:06 AM Number of Addenda: 0 Note Initiated On: 09/28/2024 7:51 AM Brandon Jeffrey DO GI PROCEDURE ORDERABLES Fin al Result PM CARDIOVASCULAR * Colonoscopy Report (09/28/2024 6:18 AM EDT) Narrative SYSTEMGENERATED, DOCUMENTATION - 09/28/2024 6:18 AM EDT This order has been auto-finalized for image and report archival in PACs. *For full report details, please reach out to your physician. This image is visible to you in MyChart.* Brandon Jeffrey DO IMG OR IMG ORDERABLES Final Result from Last 3 Months Insurance [employer] Care Teams Technical Operations Vice President Relationship Specialty Start Date End Date Lisa Tobias MD [address] [place] [address] PCP - General Family Medicine 01/28/23
--- OUTSIDE RECORDS SUMMARY | 2024-10-12 22:11 | XMS_ITS | Encounter Summary ---
Author Organization [facility] Address [address] [place] [address] Care Team Providers Care Nuclear Medicine Specialist Name Role Phone Lisa Tobias MD Primary Care Provider [phone] Lola Craig RECREATION COORDINATOR Unavailable [phone] Encounter Details Date Type Department Care Team ([facility] Contact Info) Description 07/15/2024 Results Follow-Up [facility] OB [address] [place] [address] Isis Blakely, CNM [address] [place] [address] Social History Tobacco Use Types Packs/Day Years [...] week 06/04/2024 How often do you attend christianity or congregation serv ices? Never 06/04/2024 Do you belong to any clubs o r organizations such as christianity groups, unions, fraternal or athletic groups, or [...] and heating? Not hard at all 06/04/2024 [facility] of Occupat ional Health - Occupational Stress [...] in the past 12 m [facility], were you homeless or living in a prison (including now)? No 06/04/2024 Comments No Sex and Gender Information Value Date Recorded Sex Assigned at Not on file Legal Sex Female 7:01 PM EDT Gender Identity Not on file Sexual Orientation Not on file documented as of this encounter Plan of Treatment Upcoming Encounters Date Type Department Care Team (Late st Contact Info) Description 11/16/2024 9:30 AM EDT Office Visit [facility] OB [address] [place] [address] Vianney Reyes PA [address] [facility] [address] [place], [place] [phone] 10/18/2025 10:00 AM EDT Procedure Visit [facility] OB [address] [place] [address] Jonathon Lang DO [address] [facility] [address] [place], [place] [address] documented as of this encounter Visit Diagnoses Not on filedocumented in this encounter Care Teams Nuclear Medicine Specialist Relationship Specialty Start Date End Date Lisa Tobias MD [address] [facility] [address] [place], [place] [address] PCP - General Family Medicine 09/18/22 Lola Craig NP [address] [facility] [address] [place] [id number] PCP - [place] [employer] 07/30/24 documented as of this encounter
[2024-10-15 15:08] LABS: Age Gdln ACOG Testing Note (.); IGP, Aptima HPV, rfx 16/18,45 Note (.)
== END 2024-10-12 22:06 | disposition home or self-care (01) ==
LOC: LAB 22:05
PROVIDERS: Visit Provider Obstetrics & Gynecology
DX: Z01.419 Encounter for gynecological examination (general) (routine) without abnormal findings (principal)
CPT/HCPCS: 88175

== ENCOUNTER 2024-10-19 10:50 | Outpatient (OUT) | payer BC, SELFPAY ==
--- NOTE | 2024-10-19 10:56 | ECG_ITS ---
[facility] Test Date: 2024-10-19 Pat Name: CHANDNI SALDANA Department: Room: - Gender: Female Fishing Instructor: : 1975 Requested By: HILLARY SALAS Order Number: [id number] Reading MD: DOUG KHAN M.D. Measurements Intervals [place] Rate: 49 P: 7 NC: 154 QRS: 47 QRSD: 102 T: 38 QT: 464 QTc: 420 Interpretive Statements SINUS BRADYCARDIA INCOMPLETE RIGHT BUNDLE BRANCH BLOCK [90+ ms QRS DURATION, TERMINAL R IN V1/V2, 40+ ms S IN I/aVL/V4/V5/V6] Borderline ECG No previous ECG available for comparison Electronically Signed On 10-19-2024 18:29:56 EDT by DOUG KHAN M.D.
== END 2024-10-19 10:51 | disposition home or self-care (01) ==
LOC: PST 10:51
PROVIDERS: Visit Provider Obstetrics & Gynecology
DX: Z01.810 Encounter for preprocedural cardiovascular examination (principal); R10.2 Pelvic and perineal pain; N92.1 Excessive and frequent menstruation with irregular cycle; N84.0 Polyp of corpus uteri; N93.9 Abnormal uterine and vaginal bleeding, unspecified
CPT/HCPCS: 93005

== ENCOUNTER 2024-11-06 07:22 | Day surgery (SDC) | payer BC, SELFPAY ==
[2024-10-19 11:09] VITALS: BP 120/80; PULSE 60; TEMP 36.4; O2SAT 100; BMI 32.6
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
[2024-11-06] VITALS (11 sets, daily range): BP systolic 116–132; BP diastolic 60–84; PULSE 66–93; TEMP 36.4; O2SAT 98–100; BMI 32.8
--- OUTSIDE RECORDS SUMMARY | 2024-11-06 07:24 | XMS_ITS | Encounter Summary ---
Author Organization [facility] Address [address] [place] [address] Care Team Providers Care Pulp Machine Operator Name Role Phone Lisa Tobias MD Primary Care Provider [phone] Lola Craig POWERTRAIN ENGINEER Unavailable [phone] Encounter Details Date Type Department Care Team ([facility] Contact Info) Description 10/22/2024 Telephone [facility] [address] [place] [address] Brandie Awan MA Social History Tobacco Use Types Packs/Day Years [...] How often do you attend sikhism or bahai serv ices? Never 06/04/2024 Do you belong [...] and heating? Not hard at all 06/04/2024 [facility] of Occupat ional Health - Occupational Stress [...] any time in the past 12 m [facility], were you homeless or living in a penitentiary (including now)? No 06/04/2024 Comments No Sex and Gender Information Value Date Recorded Sex Assigned at Not on file Legal Sex Female 7:01 PM EDT Gender Identity Not on file Sexual Orientation Not on file documented as of this encounter Miscellaneous Notes * Telephone Encounter - Lisa Mcadams MA - 10/26/2024 3:10 PM EDT NATALIA [place] she is scheduled with you next saturday * Telephone Encounter - Lisa Tobias MD - 10/26/2024 1:54 PM EDT The changes on her EKG could be normal for her. She should probably come in to see someone so we can assess her risk. * Telephone Encounter - Brandie Awan MA - 10/22/2024 10:01 AM EDT Patient has had one EKG done before about 22 years ago due to a fall while . Tried calling [facility] to get that sent over they only have a rentention of 10 years. Patient is wondering if there is anything to be concerned about? * Telephone Encounter - Brandie Awan MA - 10/22/2024 9:[address] Tobias: The changes on her EKG can be normal. Has she had an EKG done in the past? documented in this encounter Plan of Treatment Upcoming Encounters Date Type Department Care Team (Late st Contact Info) Description 11/16/2024 4:00 PM EDT Office Visit [facility] [address] [place] [address] Vianney Reyes PA [address] [place], [place] [id number] 10/18/2025 10:00 AM EDT Procedure Visit [facility] [address] [place] [address] Jonathon Lang DO [address] [facility] [address] [place] [address] documented as of this encounter Visit Diagnoses Not on filedocumented in this encounter Care Teams Pulp Machine Operator Relationship Specialty Start Date End Date Lisa Tobias MD [address] [facility] [address] [place], [place] [id number] PCP - General Family Medicine 09/18/22 Lola Craig NP [address] [facility] [place] [place], [place] [phone] PCP - Jessi Sampson 07/30/24 documented as of this encounter
--- OUTSIDE RECORDS SUMMARY | 2024-11-06 07:24 | XMS_ITS | Clinical Summary ---
Author Organization [facility] Only [employer] [facility] tem Address [id number] [address] [place] [address] Care Team Providers Care Cut Off Saw Operator Pipe Blanks Name Role Phone Lisa Tobisa MD Primary Care Provider [phone] Allergies No known active allergies Medications ibuprofen (ADVIL,MOTRIN) 200 mg tablet Take 3 tablets (600 mg total) by mouth every 6 (six) hours as needed. Active Active Problems No known active problems Encounters Date Type Department Care Team Description 09/28/2024 8:00 AM EDT - 09/28/2024 8:30 AM EDT Surgery [facility] - Surgery [address] [place] [address] Brandon Jeffrey, COLONOSCOPY DIAGNOSTIC / SCREENING [G0121 +1 more] 09/28/2024 7:55 AM EDT Anesthesia Event [facility] - Surgery [address] [place] [address] Sandip Tomas MD 09/28/2024 6:02 AM EDT - 09/28/2024 8:54 AM EDT Hospital Encounter [facility] - Surgery [address] [place] [address] Brandon Jeffrey, Screening for cancer (Primary Dx) Discharge Disposition: Home 09/28/2024 Travel 09/23/2024 3:00 PM EDT Support Visit [facility] - Pre Admit [address] [place] [address] 09/21/2024 12:00 PM EDT Office Visit [facility] [address] [place] [phone] Suri Bradley APRN-RIDING SILKS CUSTODIAN Encounter for screening colonoscopy (Primary Dx) 09/20/2024 [...] Screening 09/28/2025 09/28/2024 Tobacco Screening 09/28/2025 09/28/2024 Colonoscopy 09/28/2034 09/28/2024, 09/28/2024 Medical Devices Not on file Procedures Procedure Name Priority Date/Time Associated Diagnosis Comments DE COLONOSCOPY FLX DX W/COLLJ SPEC WHEN PFRMD 09/28/2024 7:58 AM EDT Screen for colon cancer DE COLON CA SCRN NOT HI RSK IND 09/28/2024 7:58 AM EDT Screen for colon cancer COLONOSCOPY 09/28/2024 7:51 AM EDT PROVATION COLONOSCOPY Routine 09/28/2024 6:18 AM EDT from Last 3 Months Results * Colonoscopy (09/28/2024 7:51 AM EDT) 09/28/2024 7:51 AM EDT Narrative PM CARDIOVASCULAR - 09/28/2024 8:13 AM EDT [facility] Patient Name: Camilla Costa Procedure Date No Time: 09/28/2024 CSN : [id number] Date of : 1975 Admit Type: Outpatient Age: 48 Room: [place] [address] Gender: Female Note Status: Finalized Attending MD: Brandon Jeffrey DO, Procedure: Colonoscopy Indications: Screening for colorectal malignant neoplasm Providers: Brandon Jeffrey DO Referring MD: Brandon Jeffrey DO Medicines: Propofol per Anesthesia Complications: No immediate complications. Procedure: After I obtained informed consent, the scope was passed under direct vision. Throughout the procedure, the patient's blood pressure, pulse, and oxygen saturations were monitored continuously. [employer] [id number] #[id number] ADULT COLONOSCOPE was introduced through the anus [...] in this report are preliminary and upon director mortgage review may be revised to meet current compliance requirements. DO Brandon Menjivar DO 09/28/2024 8:13:06 AM Number of Addenda: 0 Note Initiated On: 09/28/2024 7:51 AM Procedure Note Brandon Jeffrey DO - 09/28/2024 [facility] Patient Name: Camilla Costa Procedure Date No Time: 09/28/2024 CSN : [id number] Date of : 1975 Admit Type: Outpatient Age: 48 Room: [place] [address] Gender: Female Note Status: Finalized Attending MD: Brandon Jeffrey DO, Procedure: Colonoscopy Indications: Screening for colorectal malignant neoplasm Providers: Brandon Jeffrey DO Referring MD: Brandon Jeffrey DO Medicines: Propofol per Anesthesia Complications: No immediate complications. Procedure: After I obtained informed consent, the scope was passed under direct vision. Throughout theprocedure, the patient's blood pressure, pulse, and oxygen saturations were monitored continuously. [facility] CF-[id number] #[id number] ADULT COLONOSCOPE was introduced through the anus [...] in this report are preliminary and upon director mortgage reviewmay be revised to meet current compliance requirements. DO Brandon Menjivar DO 09/28/2024 8:13:06 AM Number of Addenda: 0 Note Initiated On: 09/28/2024 7:51 AM us Brandon Jeffrey DO GI PROCEDURE ORDERABLES Fin al Result PM CARDIOVASCULAR * Colonoscopy Report (09/28/2024 6:18 AM EDT) Narrative SYSTEMGENERATED, DOCUMENTATION - 09/28/2024 6:18 AM EDT This order has been auto-finalized for image and report archival in PACs. *For full report details, please reach out to your physician. This image is visible to you in MyChart.* us Brandon Jeffrey DO IMG OR IMG ORDERABLES Final Result from Last 3 Months Insurance [employer], [facility] Care Teams Cut Off Saw Operator Pipe Blanks Relationship Specialty Start Date End Date Lisa Tobias MD [address] [place] [address] PCP - General Family Medicine 01/28/23
--- OUTSIDE RECORDS SUMMARY | 2024-11-06 07:24 | XMS_ITS | Encounter Summary ---
Author Organization [facility] Address [address] [place] [address] Care Team Providers Care Natural Gas Basis Trader Name Role Phone Lisa Tobias MD Primary Care Provider [phone] Lola Craig LEAF SORTER Unavailable [phone] Encounter Details Date Type Department Care Team ([facility] Contact Info) Description 10/20/2024 Orders Only [facility] [address] [place] [address] Senia Diaz LPN [address] [place] [address] Social History Tobacco Use Types Packs/Day Years [...] week 06/04/2024 How often do you attend hinduism or adventism serv ices? Never 06/04/2024 Do you belong to any clubs o r organizations such as hinduism groups, unions, fraternal or athletic groups, or [...] and heating? Not hard at all 06/04/2024 [facility] of Occupat ional [facility] - Occupational Stress Questionnaire Answer Date Recorded [...] any time in the past 12 m [facility], were you homeless or living in a assisted (including now)? No 06/04/2024 Comments No Sex and Gender Information Value Date Recorded Sex Assigned at Not on file Legal Sex Female 7:01 PM EDT Gender Identity Not on file Sexual Orientation Not on file documented as of this encounter Plan of Treatment Upcoming Encounters Date Type Department Care Team (Late st Contact Info) Description 11/16/2024 4:00 PM EDT Office Visit [facility] [address] [place] [address] [place] [address] Vianney Reyes PA [address] [place] [address] 10/18/2025 10:00 AM EDT Procedure Visit [facility] [address] [place] [address] [place] [address] Jonathon Lang DO [address] [place] [address] documented as of this encounter Procedures Procedure Name Priority Date/Time Associated Diagnosis Comments PAP SMEAR Routine 10/12/2024 12:00 AM EDT documented in this encounter Results * Pap Smear (10/12/2024 12:00 AM EDT) Swab Cervical swab / Unknown us Precious Nurse [facility] LAB CYTOLOGY ORDERABLES Final Result EXTERNAL LAB documented in this encounter Visit Diagnoses Not on filedocumented in this encounter Care Teams Natural Gas Basis Trader Relationship Specialty Start Date End Date Lisa Tobias MD [address] [place] [address] PCP - General Family Medicine 09/18/22 Lola Craig NP [address] [place] [address] PCP - Jessi Sampson 07/30/24 documented as of this encounter
--- OUTSIDE RECORDS SUMMARY | 2024-11-06 07:24 | XMS_ITS | Encounter Summary ---
Author Organization [facility] Address [address] [facility] [place] [address] Care Team Providers Care Chief Creative Officer Name Role Phone Lisa Tobias MD Primary Care Provider [phone] Lola Craig JUNIOR SALES ASSISTANT Unavailable [phone] Encounter Details Date Type Department Care Team (Late Contact Info) Description [facility]2023 [facility] [address] [place] [phone] Lisa Tobias MD [address] [place] [address] Social History Tobacco Use Types [...] Upcoming Encounters Date Type Department Care Team ([facility] Contact Info) Description 11/16/2024 4:00 PM EDT Office Visit [facility] [address] [place] [phone] Vianney Reyes PA [address] [place] [address] 10/18/2025 10:00 AM EDT Procedure Visit [facility] [address] [place] [address] Jonathon Lang DO [address] [place] [address] documented as of this encounter Visit Diagnoses Not on filedocumented in this encounter Care Teams Chief Creative Officer Relationship Specialty Start Date End Date Lisa Tobias MD [address] [place], [place] [phone] PCP - General Family Medicine 09/18/22 Lola Craig NP [address] [place], [place] [phone] PCP - Jessi Sampson 07/30/24 documented as of this encounter
--- OUTSIDE RECORDS SUMMARY | 2024-11-06 07:24 | XMS_ITS | Clinical Summary ---
Author Organization [facility] Healthcare Address [address] [place] [address] Care Team Providers Care Securities Clerk Name Role Phone Lisa Tobias MD Primary Care Provider [phone] Lola Craig TEMPORARY OFFICE ASSISTANT Unavailable [phone] Allergies No known active allergies Medications ibuprofen 200 MG tablet Take 600 mg by mouth every 6 (six) hours if needed. Active Active Problems Problem Noted Date Diagnosed Date Acute pain of left knee 11/03/2024 Pain in right knee 11/03/2024 Chondromalacia of patella, left 11/03/2024 Chondromalacia of patella, right 11/03/2024 Internal derangement of right knee 11/03/2024 Irregular periods 11/03/2024 Maltracking of right patella 11/03/2024 Moderate major depression 11/03/2024 Obesity (BMI 30.0-34.9) 11/03/2024 Other chronic pain 11/03/2024 Primary osteoarthritis 11/03/2024 Encounters Date Type Department Care Team Description 11/03/2024 2:20 PM EDT Office Visit [facility] [address] [place] [address] Lisa Tobias MD Preoperative clearance (Primary Dx); RBBB 11/03/2024 Bamboo flowsheet [facility] Medicine [address] [place] [address] Lisa Tobias MD 11/03/2024 Travel 10/22/2024 Telephone [facility] [address] [place] [address] Brandie Awan MA 10/20/2024 Orders Only [facility] [address] [place] [address] Senia Diaz LPN 10/19/2024 Clinisync Result Encounter [facility] External Department Unsolicited Hillary Lang, 10/12/2024 2:20 PM EDT Office Visit [facility] [address] [place] [address] Hillary Lang DO Pre-op examination; Pelvic pain; Menorrhagia with irregular cycle; Abnormal uterine bleeding (AUB); Endometrial polyp; Well woman exam with routine gynecological exam; Breast cancer screening by mammogram 10/12/2024 Clinisync Result Encounter [facility] External Department Unsolicited Hillary Lang, 10/11/2024 Travel 09/28/2024 Abstract [facility] [address] [place] [address] Hillary Lang, 08/31/2024 1:10 PM EDT Consult [facility] [address] [place] [address] Hillary Lang DO Pelvic pain in female (Primary Dx); Menorrhagia with regular cycle 08/31/2024 Bamboo flowsheet [facility] [address] [place] [address] Hillary Lang, 08/26/2024 Travel from Last 3 Months Immunizations Immunization Administration Dates Next Due Tdap 03/09/2012 Family History Medical History Relation Name Comments Hypertension Father Father Rheum arthritis Father Father Diabetes Mother Mother Hypertension Mother Mother Thyroid disease Mother Mother Relation Name Status Comments Father Father Alive Mother Mother Alive Social History [...] week 06/04/2024 How often do you attend nondenominational or restoration serv ices? Never 06/04/2024 Do you belong to any clubs o r organizations such as nondenominational groups, unions, fraternal or athletic groups, or [...] and heating? Not hard at all 06/04/2024 [facility] of Occupat ional Health - Occupational Stress [...] any time in the past 12 m [facility], were you homeless or living in a skilled nursing (including now)? No 06/04/2024 Comments No Sex [...] Mass Index 33.15 11/03/2024 2:26 PM EDT Plan of Treatment Upcoming Encounters Date Type Department Care Team (Late st Contact Info) Description 11/16/2024 4:00 PM EDT Office Visit [facility] [address] [place] [address] [place] [address] Vianney Reyes PA [address] [facility] [place] [address] 10/18/2025 10:00 AM EDT Procedure Visit [facility] [address] [facility] [place] [address] Hillary Lang DO [address] [facility] [place] [address] Health Maintenance Due Date Last Done Comments CT Colonography 1977 FIT-DNA 1977 FIT 1975 FOBT 1975 Sigmoidoscopy 1975 Mammogram 2017 Influenza Vaccine (#1) 2024 HPV/Cotest 09/26/2027 09/25/2022, 02/02/2021 Cervical Cancer Screening 10/13/2027 Pap Smear 10/13/2027 10/12/2024 Colonoscopy 09/28/2034 09/28/2024, 09/28/2024, 09/01 Colorectal Cancer Screening 09/28/2034 Procedures Procedure Name Priority Date/Time Associated Diagnosis Comments ECG 12-LEAD 10/19/2024 9:38 AM EDT IGP,APTIMA HPV,AGE GDLN Routine 10/12/2024 2:27 PM EDT PAP SMEAR Routine 10/12/2024 12:00 AM EDT THINPREP PAP AND HPV MRNA E6/E7 W/RFL HPV 16,18/45 Routine 09/25/2022 3:59 PM EDT Vaginal burning from Last 3 Months or Most Recently Relevant to Health Maintenance Results * ECG 12-LEAD (10/19/2024 9:38 AM EDT) Anatomical Region Laterality Modality Other 10/19/2024 9:38 AM EDT Narrative 10/19/2024 6:30 PM EDT The [address] [address] Electrocardiograph Report Signed Patient: CAMILLA SALDANA MR#: [id number] : 1975 Acct:[id number] Age/Sex: 48 / F ADM Date: 10/19/24 Loc: PST Attending Dr: Hillary Lang D.O. Ordering Physician: Hillary Lang D.O. Date of Service: 10/19/24 Procedure(s): ECG 12 lead Accession Number(s): [id number] cc: [facility] Test Date: 2024-10-19 Pat Name: CAMILLA SALDANA Department: Room: - Gender: Female Clerk: : 1975 Requested By: HILLARY LANG Order Number: [id number] Reading MD: DOUG KHAN M.D. Measurements Intervals [place] Rate: 49 P: 7 CO: 154 QRS: 47 QRSD: 102 T: 38 QT: 464 QTc: 420 Interpretive Statements SINUS BRADYCARDIA INCOMPLETE RIGHT BUNDLE BRANCH BLOCK [90+ ms QRS DURATION, TERMINAL R IN V1/V2, 40+ ms S IN I/aVL/V4/V5/V6] Borderline ECG No previous ECG available for comparison Electronically Signed On 10-19-2024 18:29:56 EDT by DOUG KHAN M.D. Dictated By: DOGU KHAN Signed By: 10/19/24 1830 DD/ 0938 TD/TT: Pathology Laboratory Aides Teacher: Procedure Note Radiology, Radiologist, MD - 10/20/2024 The [place] [id number] Electrocardiograph Report Signed Patient: CAMILLA SALDANAMR#: [id number] : 1975Acct:[id number] Age/Sex: 48 / FADM Date: 10/19/24 Loc: PST Attending Dr: Hillary Lang D.O. Ordering Physician: Hillary Lang D.O. Date of Service: 10/19/24 Procedure(s): ECG 12 lead Accession Number(s): [id number] cc: [facility] Test Date: 2024-10-19 Pat Name: CAMILLA SALDANA Department: Room: - Gender: Female Clerk: : 1975 Requested By: HILLARY LANG Order Number: [id number] Dora MD: DOUG KHAN M.D. Measurements Intervals [place] Rate: 49 P: 7 CO: 154 QRS: 47 QRSD: 102 T: 38 QT: 464 QTc: 420 Interpretive Statements SINUS BRADYCARDIA INCOMPLETE RIGHT BUNDLE BRANCH BLOCK [90+ ms QRS DURATION, TERMINAL R IN V1/V2, 40+ ms S IN I/aVL/V4/V5/V6] Borderline ECG No previous ECG available for comparison Electronically Signed On 10-19-2024 18:29:56 EDT by DOUG KHAN M.D. Dictated By: DOUG KHAN Signed By:10/19/24 183 DD/ TD/TT: Pathology Laboratory Aides Teacher: Hillary Lang DO [facility] IMAGING Final Result * IGP,APTIMA HPV,AGE GDLN (10/12/2024 2:27 PM EDT) Pathologist [facility] AGE GDLN ACOG TESTING Note . [facility] Comment: TESTS RESULT FLAG UNITS REF RANGE LAB Clinician Provided Cytology Information Source.............Cervix;Endocervix No. of containers..01 ThinPrep Vial Age Algo ACOG Tere... FLAG LEGEND: L-Low Normal,H-High Normal,LL-Alert Low,HH-Alert High <-Panic Low,>-Panic High,A-Abnormal,AA-Critical Abnormal Performed at: 01 =G [facility] [place] [address] [facility] [place] [address] Summer Sultana MD, IGP, APTIMA HPV, RFX 16/18,45 Note . [facility] Comment: TESTS RESULT FLAG UNITS REF RANGE LAB DIAGNOSIS: 02 NEGATIVE FOR INTRAEPITHELIAL LESION OR MALIGNANCY. Specimen adequacy: 02 Satisfactory for evaluation. Endocervical and/or squamous metaplastic cells (endocervical component) are present. Performed by: 02 Muriel Daly, Supervisor Final ([facility]) . 02 Note: Note 02 The Pap smear is a screening test designed to aid in the detection of premalignant and malignant conditions of the uterine cervix. It is not a diagnostic procedure and should not be used as the sole means of detecting cervical cancer. Both false-positive and false-negative reports do occur. Test Methodology: Note 02 This liquid based ThinPrep(R) pap test was screened with the use of an image guided system. HPV Genotype Reflex Note 02 Criteria not met, HPV Genotype not performed. FLAG LEGEND: L-Low Normal,H-High Normal,LL-Alert Low,HH-Alert High <-Panic Low,>-Panic High,A-Abnormal,AA-Critical Abnormal Performed at: 02 WB [facility] [place] [address] [facility] [place] [address] Summer Sultana MD, HPV APTIMA Negative Negative [facility] Comment: This nucleic acid amplification test detects fourteen high- risk HPV types (16,18,31,33,35,39,45,51,52,56,58,59,66,68) without differentiation. Performed at: = - [facility] [address], [place] [id number] Retail Sales Associate Bilingual: Summer Sultana MD, Phone: [phone] Performed at: - [facility], [place] [id number] Retail Sales Associate Bilingual: Summer Sultana MD, Phone: [phone] 10/12/2024 2:27 PM EDT 10/13/2024 6:12 AM EDT Narrative [facility]INIS[facility] - 10/15/2024 3:08 PM EDT BRUSH-SPATULA CERVIX ENDOCERVIX Hillary Lang DO LAB BLOOD ORDERABLES Final Resul t [facility] * Pap Smear (10/12/2024 12:00 AM EDT) Swab Cervical swab / Unknown Precious Nurse [facility] Ob LAB CYTOLOGY ORDERABLES Final Result EXTERNAL LAB * THINPREP PAP AND HPV MRNA E6/E7 W/RFL HPV 16,18/45 (09/25/2022 3:59 PM EDT) CLINICAL INFORMATION [facility] Comment:Routine exam LMP [facility] Comment:NONE GIVEN PREV. PAP [facility] Comment:NONE GIVEN PREV. BX [facility] Comment:NONE GIVEN SOURCE [facility] Comment:None given STATEMENT OF ADEQUACY [facility] Comment: Satisfactory for evaluation. Endocervical/transformation zone component present. INTERPRETATION/RESU LT [facility] Comment:Negative for intraep ithelial lesion or malignancy. TEAM FACILITATOR [facility] Comment: DAA, CT(ASCP) CT Screening Location: [facility] [place], [address] [place] [address] REVIEW TEAM FACILITATOR [facility] Comment: FADUMO MORRIS(ASCP) CT Screening Location: [facility] [address] [address]. (ALWAYS MESSAGE) [facility] Comment: EXPLANATORY NOTE: The Pap is a [...] HPV MRNA E6/E7 Not Detected Not Detected [facility] Comment: Methodology: Organic Chemistry Teacher-Mediated Amplification This assay detects E6/E7 viral messenger RNA (mRNA) from 14 high-risk HPV types (16,18,31,33,35,39,45,51,52,56,58,59,66,68). Cervical sources are required for HPV testing. If a vaginal source from a patient who has had a total hysterectomy with removal of cervix was submitted, please contact the testing laboratory for alternative testing options. For additional information, please refer to http://education.MagForce/faq/LAE545y5 (This link if provided for information/ educational purposes only.) 09/25/2022 3:59 PM EDT 09/26/2022 4:00 AM EDT Narrative Resulting Agency Comment Performing Organization Information Site ID: [id number] Name: [facility] Address: [address] [place] [id number] Director: Michael Pino MD Isis Blakely CNM LAB BLOOD ORDERABLES Final R esult [facility] from Last 3 Months or Most Recently Relevant to Health Maintenance Insurance BS Care Teams Securities Clerk Relationship Specialty Start Date End Date Lisa Tobias MD [address] [place] [address] PCP - General Family Medicine 09/18/22 Lola Craig NP [address] [place] [address] PCP - Jessi Sampson 07/30/24
--- OUTSIDE RECORDS SUMMARY | 2024-11-06 07:24 | XMS_ITS | Clinical Summary ---
Author Organization [facility] Address [address], [address] [place] [address] Care Team Providers Care Supervisor Filtration Name Role Phone Unavailable Primary Care Provider Unavailabl e Allergies No known active allergies Social History Tobacco Use Types Packs/Day Years Used Date Smoking Tobacco: Never Assessed AUDIT-C Answer Date Recorded Q1: How often do you have a drink containing alcohol? Never 01/14/2023 Q2: How many drinks containi ng alcohol do you have on a typical day when you are drinking? Patient does not drink Q3: How often do you have si x or more drinks on one occasion? Never 01/14/2023 Comments Unknown Sex and Gender Information Value Date Recorded Sex Assigned at Not on file Legal Sex Female 2:41 PM EST Gender Identity Not on file Sexual Orientation Not on file Plan of Treatment Health Maintenance Due Date Last Done Comments DTaP/Tdap/Td vaccine (1 - Tdap) 1996 COVID-19 Vaccine (2023-2 5 season) 2023 Flu vaccine (#1) 10/30/2024 Polio vaccine Aged Out No longer elig ible based on patient's age to complete this topic
--- OUTSIDE RECORDS SUMMARY | 2024-11-06 07:24 | XMS_ITS | Encounter Summary ---
Author Organization [facility] Address [address] [place] [address] Care Team Providers Care Scientologist Name Role Phone Lisa Tobias MD Primary Care Provider [phone] Lola Craig NBA PLAYER Unavailable [phone] Encounter Details Date Type Department Care Team ([facility] Contact Info) Description 09/28/2024 Abstract [facility] [address] [facility] [place] [address] Jonathon Lang DO [address] [facility] [address] [place], [id number] Social History Tobacco Use Types Packs/Day Years [...] week 06/04/2024 How often do you attend adventist or presybeterian serv ices? Never 06/04/2024 Do you belong to any clubs o r organizations such as adventist groups, unions, fraternal or athletic groups, or [...] and heating? Not hard at all 06/04/2024 [facility] of Occupat ional [facility] - Occupational Stress Questionnaire Answer [...] any time in the past 12 m [facility], were you homeless or living in a intermediate (including now)? No 06/04/2024 Comments No Sex [...] PM EDT Office Visit [facility] [address] [facility] [place] [address] Vianney Reyes PA [address] [facility] [address] [place], [place] [id number] 10/18/2025 10:00 AM EDT Procedure Visit [facility] [address] [facility] [place] [address] Jonathon Lang DO [address] [facility] [address] [place], [place] [address] documented as of this encounter Visit Diagnoses Not on filedocumented in this encounter Care Teams Scientologist Relationship Specialty Start Date End Date Lisa Tobias MD [address] [facility] [address] [place], [place] [address] PCP - General Family Medicine 09/18/22 Lola Craig NP [address] [facility] [address] [place] [id number] PCP - [place] [employer] 07/30/24 documented as of this encounter
--- OUTSIDE RECORDS SUMMARY | 2024-11-06 07:24 | XMS_ITS | Encounter Summary ---
Author Organization [facility] Address [address] [place] [address] Care Team Providers Care Music Composer Name Role Phone Lisa Tobias MD Primary Care Provider [phone] Lola Craig ASSOCIATE PROGRAMMER Unavailable [phone] Encounter Details Date Type Department Care Team (Latest Contact Info) Description 11/03/2024 Travel Social History Tobacco Use Types Packs/Day Years Used Date Smoking Tobacco: Former Cigarettes 1 10 Smokeless Tobacco: Never Alcohol Use Standard Drinks/Week [...] week 06/04/2024 How often do you attend jainism or jewish serv ices? Never 06/04/2024 Do you belong to any clubs o r organizations such as jainism groups, unions, fraternal or athletic groups, or [...] and heating? Not hard at all 06/04/2024 [facility] of Occupat ional Health - Occupational Stress [...] were you homeless or living in a fpc (including now)? No 06/04/2024 Comments No Sex [...] PM EDT Office Visit [facility] [address] [facility] [facility] [place] [address] Vianney Reyes PA [address] [facility] [place] [address] 10/18/2025 10:00 AM EDT Procedure Visit [facility] [address] [facility] [place] [address] Jonathon Lang DO [address] [facility] [address] [place] [place], [place] [address] documented as of this encounter Visit Diagnoses Not on filedocumented in this encounter Care Teams Music Composer Relationship Specialty Start Date End Date Lisa Tobias MD [address] [facility] [address] [place], [place] [address] PCP - General Family Medicine 09/18/22 Lola Craig NP [address] [facility] [address] [place], [place] [address] PCP - [place] [employer] 07/30/24 documented as of this encounter
--- OUTSIDE RECORDS SUMMARY | 2024-11-06 07:24 | XMS_ITS | Encounter Summary ---
Author Organization [facility] Healthcare Address [address] [place] [address] Care Team Providers Care Case Checker Name Role Phone Lisa Tobias MD Primary Care Provider [phone] Lola Craig DIRECTOR UNDERWRITER SALES Unavailable [phone] Encounter Details Date Type Department Care Team ([facility] Contact Info) Description 07/15/2024 Results Follow-Up [facility]BGYN [address] [place] [address] Isis Blakely, CN [address] [place] [address] Social History Tobacco Use Types [...] week 06/04/2024 How often do you attend temple or scientologist serv ices? Never 06/04/2024 Do you belong to any clubs o r organizations such as temple groups, unions, fraternal or athletic groups, or [...] and heating? Not hard at all 06/04/2024 [facility] of Occupat ional [facility] - Occupational Stress Questionnaire Answer [...] any time in the past 12 m [facility], were you homeless or living in a senior living (including now)? No 06/04/2024 Comments No Sex [...] EDT Office Visit [facility] [address] [place] [address] Vianney Reyes PA [address] [facility] [address] [place], [place] [address] 10/18/2025 10:00 AM EDT Procedure Visit [facility] [address] [place] [address] Jonathon Lang DO [address] [facility] [address] [place] [place], [place] [id number] documented as of this encounter Visit Diagnoses Not on filedocumented in this encounter Care Teams Case Checker Relationship Specialty Start Date End Date Lisa Tobias MD [address] [facility] [address] [place], [place] [id number] PCP - General Family Medicine 09/18/22 Lola Craig NP [address] [facility] [address] [place] [id number] PCP - [place] [employer] 07/30/24 documented as of this encounter
--- OUTSIDE RECORDS SUMMARY | 2024-11-06 07:24 | XMS_ITS | Encounter Summary ---
Author Organization [facility] Address [address] [place] [address] Care Team Providers Care Clutch Operator Name Role Phone Lisa Tobias MD Primary Care Provider [phone] Lola Craig POTATO CHIP FRIER Unavailable [phone] Encounter Details Date Type Department Care Team ([facility] Contact Info) Description 11/03/2024 Bamboo flowsheet [facility] Family Medicine [address] [place] [address] Lisa Tobias MD [address] [place] [address] Social History Tobacco Use Types [...] week 06/04/2024 How often do you attend muslim or christianity serv ices? Never 06/04/2024 Do you belong to any clubs o r organizations such as muslim groups, unions, fraternal or athletic groups, or [...] and heating? Not hard at all 06/04/2024 [facility] of Occupat ional Health - Occupational Stress [...] any time in the past 12 m [facility], were you homeless or living in [...] 4:00 PM EDT Office Visit [facility] BARNES [address] [place] [address] [place] [address] Vianney Reyes PA [address] [facility] [address] [place], [facility] 10/18/2025 10:00 AM EDT Procedure Visit [facility] B[facility]ES [address] [facility] [place] [address] Jonathon Lang DO [address] [facility] [place] [address] documented as of this encounter Visit Diagnoses Not on filedocumented in this encounter Care Teams Clutch Operator Relationship Specialty Start Date End Date Lisa Tobias MD [address] [facility] [address] [place], [place] [address] PCP - General Family Medicine 09/18/22 Lola Craig NP [address] [facility] [address] [place] [id number] PCP - [place] [employer] 07/30/24 documented as of this encounter
[2024-11-06 07:28] LABS: Hematocrit 37.6 % (36.0-48.0); Hemoglobin 12.7 g/dL (12.0-16.0); Immature Granulocytes Abs Auto 0.01 10^3/uL (0.00-0.03); Immature Granulocytes Pct Auto 0.2 % (0.0-0.5); Lymphocytes Absolute Auto 2.1 10^3/uL (1.2-3.8); Mean Corpuscular HGB Conc 33.8 g/dL (29.9-35.2); Mean Corpuscular Hemoglobin 31.1 pg (26.7-34.0); Mean Corpuscular Volume 92.2 fL (81.0-99.0); Platelet Count 285 10^3/uL (150-450); Red Blood Count 4.08 10^6/uL (4.20-5.40); White Blood Count 6.5 10^3/uL (4.0-11.0)
[2024-11-06] MEDS: FAMOTIDINE/PF 20 MG/2 ML VIAL IV (08:03)
[2024-11-06] MEDS: SCOPOLAMINE 1 MG/3 DAYS TRANSDERM PATCH 1 PATCH TD (08:03)
--- NOTE | 2024-11-06 09:51 | P.ON_ITS ---
Brief Operative Note Date of procedure: 11/06/24 Pre-op diagnosis general: pelvic pain, menorrhagia Post-op diagnosis: same as pre-op Procedure: NAME OF PROCEDURE: [ D&c hysteroscopy with myosure] PROCEDURE: The patient was taken back to the Operating Room where she was prepped and draped in normal sterile fashion after being placed under general anesthesia without difficulty. She was also placed in the dorsal lithotomy position. A weighted speculum was placed in the patient?s vagina. The anterior lip of the cervix was identified and grasped with a single tooth tenaculum. The patient?s uterus was then sounded roughly to [? 8] cm. The patient was then gently dilated using Hegar dilators. The hysteroscope was passed through the patient?s cervix into the uterus. Both ostia were identified. fluffy appearing endometrium. No gross evidence of malignancy, no gross evidence of polyps or fibroids. The myosure apparatus was placed through the scope, The myosure was engaged and endometrial curretting were removed along with endometrial polyp, The hysteroscope was then removed from the uterus. The endometrial curettings were sent out to pathology. The single tooth tenaculum was then removed from the patient's anterior lip of the cervix where excellent hemostasis was noted. All instruments were removed from the patient?s vagina. A sponge stick was placed into the patient's vagina. Attention was turned to the patient's abdomen, where a small umbilical incision was made. The fascia was tented using Radha clamps and the fascia was entered sharply. Confirmation of intraabdominal placement of the 10 mm port was confirmed under direct visualization using a laparoscope. The patient's abdomen was then insufflated using CO2 gas with approximately 4 liters. A second port was placed left laterally, this was done under direct visualization with a 5 mm port. Survey of the patient's abdomen demonstrated normal liver and gallbladder. Survey of the patient's pelvic anatomy demonstrated normal appearing rt and lt ovary and tubes as well as normal appearing uterus. No endometrial implants could be noted, no evidence of any pelvic disease was seen, normal appearing pelvic cavity. All instruments were removed from the patient's abdomen. The patient's abdomen was deinsufflated of CO2 gas. The patient tolerated the procedure well. Sponge stick was removed from the patient's vagina. The patient's infraumbilical fascia was closed using #0 Vicryl on a GI needle. The patient's skin was closed laterally and infraumbilically using 4-0 Vicryl. The patient tolerated the procedure well. Sponge, lap and needle counts were correct x 2. The patient was taken to Recovery Room in stable condition. Anesthesia: LELE Surgeon: Jonathon Lang Marine Structural Welder: Akila Meneses Estimated blood loss (mL): 5 Pathology: other (endometrial currettings) Condition: stable Disposition: PACU Urinary Catheter Management Urinary Catheter Management Urethral: Cath placed during this visit: no
[2024-11-06] MEDS: HYDROCODONE/ACET 5-325 MG TABLET 1 TAB PO (10:47)
== END 2024-11-06 11:45 | disposition home or self-care (01) ==
LOC: SURGOUT 07:22
PROVIDERS: Visit Provider Obstetrics & Gynecology
PROC: (CPT 840; principal; 2024-11-06 08:40)
DX: R10.2 Pelvic and perineal pain (principal); N92.1 Excessive and frequent menstruation with irregular cycle; N84.0 Polyp of corpus uteri; N93.9 Abnormal uterine and vaginal bleeding, unspecified; Z87.891 Personal history of nicotine dependence
CPT/HCPCS: 49320; 58558; 36415; 84702; 85025; 88305; J1885; J2250; J2405; J2704; J3010; J3490